=== PATIENT | female | born 1955 | race African-American/Black ===

== ENCOUNTER 2018-11-06 23:25 | Emergency (ER) | payer BC ==
[~2018-11-06] VITALS: Ht 167.6 cm; Wt 86.4 kg
[2018-11-06 23:33] VITALS: Ht 167.6 cm; Wt 86.4 kg
[2018-11-06] MEDS ORDERED: COZAAR25 MG PO (23:35)
[2018-11-07] MEDS ORDERED: ROBAXIN500 MG PO (00:56)
[2018-11-07] MEDS ORDERED: DICLOFENAC SODI50 MG PO (00:56)
[2018-11-07 01:30] VITALS: BP 119/50
== END 2018-11-07 01:31 | disposition home or self-care (01) ==
LOC: D.ER 23:25
DX: M48.36 Traumatic spondylopathy, lumbar region (principal); M51.36 Other intervertebral disc degeneration, lumbar region; M54.32 Sciatica, left side